=== PATIENT | female | born 1955 | race Two or more races ===

== ENCOUNTER 2023-04-14 18:32 | Inpatient (IN) | payer OTHER ==
[2023-04-14 20:20] VITALS: BMI 18.6
[2023-04-14 22:48] LABS: HEMATOCRIT 33.3 % (32.4-45.2); HEMOGLOBIN 10.5 G/dL (10.7-15.3); MCH 30.4 pg (25.7-33.7); MCHC 31.5 g/dl (32.0-36.0); MEAN CELL VOLUME 96.4 fl (80-96); MEAN PLT VOLUME 7.4 fl (7.5-11.1); PLATELET COUNT 447.2 10^3/uL (134-434); RBC 3.45 10^6/uL (3.60-5.2); RDW 14.1 % (11.6-15.6); WHITE BLOOD COUNT 9.2 10^3/uL (4.0-10.8)
[2023-04-14 23:01] LABS: PLATELET ESTIMATE ADEQUATE
[2023-04-14 23:05] LABS: ALBUMIN 3.6 g/dl (3.4-5.0); BILIRUBIN,TOTAL 0.7 mg/dl (0.2-1); CALCIUM 9.3 mg/dl (8.5-10.1); CREATININE 0.5 mg/dl (0.6-1.3); POTASSIUM 3.7 mmol/L (3.5-5.1); TOT PROT 6.6 g/dl (6.4-8.2)
[2023-04-14] MEDS ORDERED: VANCOMYCIN 500 MG VIAL (RESTRICTED TO ID ONLY) ONE (23:27)
[2023-04-14] MEDS ORDERED: VANCOMYCIN 500 MG in DEXTROSE 5%-WATER - 100 ML IVPB ONE (23:27)
[2023-04-15] MEDS ORDERED: ACETAMINOPHEN 1000 MG/100 ML BAG IVPB ONE (00:53)
[2023-04-15] MEDS ORDERED: ACETAMINOPHEN INJECTION 100 ML IVPB ONE (00:55)
[2023-04-15] MEDS: SODIUM CHLORIDE 1,000 ML IV SCH (07:16)
[2023-04-15 07:58] LABS: CREATININE 0.5 mg/dl (0.6-1.3); POTASSIUM 3.9 mmol/L (3.5-5.1)
[2023-04-15 09:08] LABS: BASO % 0.6 % (0-2.0); EOS % 2.9 % (0-4.5); HEMATOCRIT 31.3 % (32.4-45.2); LYMPH % 22.1 % (8-40); MCH 30.2 pg (25.7-33.7); MCHC 31.9 g/dl (32.0-36.0); MEAN CELL VOLUME 94.8 fl (80-96); MEAN PLT VOLUME 7.5 fl (7.5-11.1); MONO % 9.6 % (3.8-10.2); NEUT % 64.8 % (42.8-82.8); PLATELET COUNT 442 10^3/uL (134-434); RDW 12.5 % (11.6-15.6)
[2023-04-15] MEDS: ACETAMINOPHEN 1000 MG/100 ML BAG IVPB PRN ×2 (10:49→21:41)
[2023-04-15] MEDS ORDERED: VANCOMYCIN 750 MG in DEXTROSE 5%-WATER - 150 ML IVPB SCH (11:00)
[2023-04-15] MEDS ORDERED: VANCOMYCIN/WATER FOR INJ (PEG) 750 MG/150 ML BAG IVPB SCH (11:00)
[2023-04-15] MEDS: CLINDAMYCIN 600MG PREMIX IVPB 600 MG/50 ML BAG IVPB SCH ×2 (14:27→18:39)
[2023-04-15] MEDS ORDERED: MEROPENEM 1 GM in DEXTROSE 5%-WATER 100 ML IVPB SCH (20:15)
[2023-04-15] MEDS: AZTREONAM 1 GM in DEXTROSE 5%-WATER - 50 ML IVPB SCH (20:50)
[2023-04-16] MEDS: AZTREONAM 1 GM in DEXTROSE 5%-WATER - 50 ML IVPB SCH ×3 (01:55→18:24)
[2023-04-16] MEDS: ACETAMINOPHEN 1000 MG/100 ML BAG IVPB PRN (11:30)
[2023-04-16] MEDS: VANCOMYCIN/WATER FOR INJ (PEG) 1,000 MG/200 ML BAG IVPB SCH (12:00)
[2023-04-16] MEDS: SODIUM CHLORIDE 1,000 ML IV SCH (18:24)
[2023-04-17] MEDS: AZTREONAM 1 GM in DEXTROSE 5%-WATER - 50 ML IVPB SCH ×3 (01:03→17:46)
[2023-04-17 08:35] LABS: ALBUMIN 2.8 g/dl (3.4-5.0); BILIRUBIN,TOTAL 0.6 mg/dl (0.2-1); CALCIUM 8.6 mg/dl (8.5-10.1); CREATININE 0.6 mg/dl (0.6-1.3); POTASSIUM 3.7 mmol/L (3.5-5.1); TOT PROT 5.3 g/dl (6.4-8.2)
[2023-04-17 09:30] LABS: BASO % 0.5 % (0-2.0); EOS % 2.8 % (0-4.5); HEMATOCRIT 30.1 % (32.4-45.2); HEMOGLOBIN 9.5 GM/dL (10.7-15.3); LYMPH % 19.9 % (8-40); MCH 30.2 pg (25.7-33.7); MCHC 31.6 g/dl (32.0-36.0); MEAN CELL VOLUME 95.7 fl (80-96); MEAN PLT VOLUME 7.5 fl (7.5-11.1); MONO % 6.7 % (3.8-10.2); NEUT % 70.1 % (42.8-82.8); PLATELET COUNT 421 10^3/uL (134-434); RBC 3.15 M/mm3 (3.60-5.2); RDW 12.8 % (11.6-15.6); WHITE BLOOD COUNT 8.2 K/mm3 (4.0-10.0)
[2023-04-17] MEDS: ACETAMINOPHEN 1000 MG/100 ML BAG IVPB PRN ×2 (09:46→22:16)
[2023-04-17] MEDS: VANCOMYCIN/WATER FOR INJ (PEG) 1,000 MG/200 ML BAG IVPB SCH (10:56)
[2023-04-17] MEDS: SODIUM CHLORIDE 1,000 ML IV SCH (17:48)
[2023-04-18] MEDS: AZTREONAM 1 GM in DEXTROSE 5%-WATER - 50 ML IVPB SCH ×3 (01:33→17:48)
[2023-04-18 09:19] LABS: ALBUMIN 2.9 g/dl (3.4-5.0); BILIRUBIN,TOTAL 0.8 mg/dl (0.2-1); CALCIUM 8.7 mg/dl (8.5-10.1); POTASSIUM 3.7 mmol/L (3.5-5.1); TOT PROT 5.3 g/dl (6.4-8.2)
[2023-04-18 09:38] LABS: CREATININE 0.5 mg/dl (0.6-1.3)
[2023-04-18 10:24] LABS: HEMOGLOBIN 9.6 GM/dL (10.7-15.3); MCH 30.6 pg (25.7-33.7); MCHC 32.2 g/dl (32.0-36.0); MEAN CELL VOLUME 95.1 fl (80-96); MEAN PLT VOLUME 7.7 fl (7.5-11.1); PLATELET COUNT 396 10^3/uL (134-434); RBC 3.15 M/mm3 (3.60-5.2); RDW 13.1 % (11.6-15.6); WHITE BLOOD COUNT 7.8 K/mm3 (4.0-10.0)
[2023-04-18] MEDS: SODIUM CHLORIDE 1,000 ML IV SCH (10:53)
[2023-04-18] MEDS: MULTIVITAMINS THER W-MINERALS COMBO TABLET (FP) PO SCH (10:53)
[2023-04-18] MEDS: VANCOMYCIN/WATER FOR INJ (PEG) 1,000 MG/200 ML BAG IVPB SCH (12:09)
[2023-04-18] MEDS ORDERED: MELATONIN 5 MG TABLETS PO PRN (22:29)
[2023-04-18] MEDS: ACETAMINOPHEN 1000 MG/100 ML BAG IVPB PRN (22:52)
[2023-04-19] MEDS ORDERED: diphenhydrAMINE HCL 25 MG CAPSULE (FP) PO ONE
[2023-04-19] MEDS: AZTREONAM 1 GM in DEXTROSE 5%-WATER - 50 ML IVPB SCH ×2 (01:07→09:37)
[2023-04-19] MEDS: SODIUM CHLORIDE 1,000 ML IV SCH (09:37)
[2023-04-19] MEDS: MULTIVITAMINS THER W-MINERALS COMBO TABLET (FP) PO SCH (09:37)
[2023-04-19] MEDS: VANCOMYCIN/WATER FOR INJ (PEG) 1,000 MG/200 ML BAG IVPB SCH (10:27)
[2023-04-19 13:43] VITALS: BP 116/54; PULSE 68; RESP 18; TEMP 98.6
== END 2023-04-19 14:20 | disposition home or self-care (01) | DRG 571 ==
LOC: FER 18:32 → FM/S 04-15 04:35 → OBSVTOIN 04-15 14:05
PROVIDERS: ADMIT Internal Medicine
PROC: 0JB10ZZ Excision of Face Subcutaneous Tissue and Fascia, Open Approach (ICD-10-PCS; principal; 2023-04-15)
DX: L02.01 Cutaneous abscess of face (principal); I96 Gangrene, not elsewhere classified; Z88.0 Allergy status to penicillin
CPT/HCPCS: 36415; 70486-TC; 71045-TC-FY; 80048; 80053; 83036; 85025; 85027; 87040; 87070; 87186; 87205; 93005; 99285-25; G0378